=== PATIENT | female | born 1990 | race Caucasian/White ===

== ENCOUNTER 2021-12-22 14:57 | Outpatient (CLI) | payer OTHER, SELFPAY | END 2021-12-22 14:58 | disposition home or self-care (01) | PROVIDERS: Visit Provider Registered Nurse | DX: N92.0 Excessive and frequent menstruation with regular cycle (principal) | CPT/HCPCS: 84443 ==

== ENCOUNTER 2021-12-27 10:46 | Outpatient (CLI) | payer OTHER, SELFPAY ==
--- NOTE | 2021-12-27 11:00 | CRLHL7_ITS ---
For Patients: As a result of the Century Cures Act, medical imaging exams and procedure reports are released immediately into your electronic medical record. You may view this report before your referring provider. If you have questions, please contact your health care provider. INDICATION: MENORRHAGIA COMPARISON: none TECHNIQUE: 2D rdz scale and color Doppler images were acquired of the pelvis using a transabdominal and transvaginal approach. FINDINGS: Sonographic images demonstrate a normal size and smooth outer contour of the uterus. Uterus measures 12.5 cm in length by 5.2 cm in AP diameter by 6.7 cm in transverse dimension. The myometrium has a normal uniform echotexture. There is a small right-sided uterine fibroid measuring 2.5 x 1.8 x 2.1 cm, located within the right fundal myometrium. Subtle cystic change adjacent to the anterior endometrium. Endometrial thickness 15 millimeters. Possible focus of hyperechoic tissue within the right side of fundal endometrium measuring 12 millimeters. The right ovary measures 5.6 x 2.1 x 3.1 cm in size and the left ovary measures 5.3 x 2.9 x 3.9 cm. Left ovarian cyst is present with reticular internal echoes measuring 3.5 x 2.0 x 3.0 cm. The ovaries demonstrate normal arterial and venous blood flow on color Doppler analysis. There are no suspicious fluid collections within the cul-de-sac. IMPRESSION: Endometrial thickness is 15 millimeters with possible endometrial polyp versus a small amount of blood products measuring 12 millimeters. Possible adenomyosis with subtle cystic change adjacent to the anterior endometrium. Small right-sided uterine fibroid measuring 2.5 cm. Hemorrhagic left ovarian cyst measuring 3.5 cm. Dictated by Uvaldo Medina MD @ 12/27/2021 11:48:58 AM (Electronically Signed)
== END 2021-12-27 10:47 | disposition home or self-care (01) ==
LOC: US 10:47
PROVIDERS: Visit Provider Registered Nurse
DX: N92.0 Excessive and frequent menstruation with regular cycle (principal); D25.9 Leiomyoma of uterus, unspecified; N83.202 Unspecified ovarian cyst, left side
CPT/HCPCS: 76830; 76856